=== PATIENT | female | born 1980 ===

== ENCOUNTER 2016-11-24 13:17 | Emergency (ER) | payer OTHER ==
[2016-11-24 13:35] VITALS: RESP 20
--- NOTE | 2016-11-24 15:21 | ED PDOC ---
HPI: Abdomen Time Seen by Provider: 11/24/16 14:19 Chief Complaint (Nursing): Abdominal Pain History Per: Patient (states that she has had heavy menses for at least one month. She was seen at [facility] and was given a 10 day course of medicaition without relief. She uses 3-4 pads during the day time and uses 2 more pads with clots at night. She c/o mild right sided abd pain, upper and lower. She denies complaints.) History/Exam Limitations: no limitations Onset/Duration Of Symptoms: Days (since 10/17/2016), Waxing/Waning, Gradual Outside of [place] travel?: No Past Medical History Reviewed: Historical Data, Nursing Documentation, Vital Signs Vital Signs: Last Vital Signs Temp 98.4 F 11/24/16 13:30 Pulse 87 11/24/16 13:30 Resp 20 11/24/16 13:30 BP 125/91 H 11/24/16 13:30 Pulse Ox 100 11/24/16 15:25 - Medical History PMH: No Chronic Diseases - Surgical History Surgical History: Cholecystectomy - Family History Family History: States: No Known Family Hx - Living Arrangements Living Arrangements: With Family - Social History Current smoker - smoking cessation education provided: No Alcohol: Occasional Drugs: Denies - Home Medications Home Medications: Ambulatory Orders Medication Instructions Recorded Naproxen [Naprosyn] 500 mg PO BID #28 tab 11/24/16 - Allergies Allergies/Adverse Reactions: Allergies Allergy/AdvReac Type Severity Reaction Status Date / Time No Known Allergies Allergy Verified 11/24/16 13:29 Review of Systems ROS Statement: Except As Marked, All Systems Reviewed And Found Negative Constitutional: Negative for: Fever, Chills Gastrointestinal: Positive for: Abdominal Pain. Negative for: Nausea, Vomiting Genitourinary Female: Positive for: Vaginal Bleeding. Negative for: Pelvic Pain Physical Exam - Reviewed Nursing Documentation Reviewed: Yes Vital Signs Reviewed: Yes - Physical Exam Appears: Positive for: Well, Non-toxic, No Acute Distress Head Exam: Positive for: ATRAUMATIC, NORMAL INSPECTION, NORMOCEPHALIC Skin: Positive for: Normal Color, Warm, DRY Eye Exam: Positive for: EOMI, Normal appearance, PERRL ENT: Positive for: Normal ENT Inspection Neck: Positive for: Normal, Painless ROM Cardiovascular/Chest: Positive for: Regular Rate, Rhythm Respiratory: Positive for: CNT, Normal Breath Sounds Gastrointestinal/Abdominal: Positive for: Bowel Sounds, Soft, Tenderness (mild in the right upper and lower quadrants. No guarding or rebound tenderness.) Pelvic Exam: Positive for: External Exam Normal (CRIBBING SETTER: DEVAN IN ROOM 12) , Speculum Exam Normal (SCANT BLOOD), No Cerv. Motion Tender, Blood. Negative for: Discharge, Lesions, Mass, Tender W/Cervical Motion, Tender Adnexa, Tender Uterus Back: Positive for: Normal Inspection Extremity: Positive for: Normal ROM Neurologic/Psych: Positive for: Alert, Oriented - Laboratory Results Result Diagrams: 11/24/16 15:25 11/24/16 15:25 - ECG O2 Sat by Pulse Oximetry: 100 Disposition - Clinical Impression Clinical Impression: DUB (dysfunctional uterine bleeding) - Patient ED Disposition Is Patient to be Admitted: No Doctor Will See Patient In The: Office Counseled Patient/Family Regarding: Diagnosis, Need For Followup, Rx Given - Disposition [facility]] [facility] [Outside] [facility] [Outside] [facility] [Outside] Disposition: Routine/Home Disposition Time: 18:37 Condition: STABLE Prescriptions: Naproxen [Naprosyn] 500 mg PO BID #28 tab Instructions: Dysfunctional Uterine Bleeding (ED) Print Language: OCCITAN
[2016-11-24 15:40] LABS: BASO % 0.5 % (0.0-2.0); EOS # 0.1 K/uL (0.0-0.7); HEMATOCRIT 38.1 % (34.0-47.0); LYMPH # 2.3 K/uL (1.0-4.3); LYMPH % 25.6 % (20.0-40.0); MEAN CELL VOLUME 85.4 fl (81.0-99.0); MEAN CORPUSCULAR HEMOGLOBIN 28.3 pg (27.0-31.0); MEAN CORPUSCULAR HGB CONC 33.2 g/dL (33.0-37.0); MEAN PLATELET VOLUME 9.1 fl (7.2-11.7); MONO # 0.5 K/uL (0.0-0.8); MONO % 5.3 % (0.0-10.0); NEUT # 6.1 K/uL (1.8-7.0); NEUT % 67.6 % (50.0-75.0); RED CELL DISTRIBUTION WIDTH 13.4 % (11.5-14.5)
[2016-11-24 15:46] LABS: ALB/GLOB RATIO 1.5 (1.0-2.1); ALKALINE PHOSPHATASE 71 U/L (38-126); ALT/SGPT 36 U/L (9-52); AST/SGOT 26 U/L (14-36); BILIRUBIN,TOTAL 0.1 mg/dl (0.2-1.3); BLOOD UREA NITROGEN 9 mg/dl (7-17); CALCIUM 9.5 mg/dL (8.4-10.2); CARBON DIOXIDE 25 mmol/L (22-30); CHLORIDE 107 mmol/L (98-107); GFR AFRICAN-AMERICAN > 60; GLUCOSE,RANDOM 107 mg/dL (65-105); POTASSIUM 3.9 MMOL/L (3.6-5.0); SODIUM 146 mmol/l (132-148); TOTAL PROTEIN 7.4 G/DL (6.3-8.2)
[2016-11-24 15:51] LABS: PARTIAL THROMBOPLASTIN TIME 24.1 SECONDS (23.3-32.5)
--- NOTE | 2016-11-24 16:21 | US ---
HISTORY: vaginal bleeding for one month COMPARISON: None available. TECHNIQUE: Transvaginal pelvic ultrasound FINDINGS: UTERUS: Measures 7.8 x 4.2 x 3.4 cm. Anteverted. 0.9 x 0.9 x 0.9 cm probable posterior uterine fibroid. ENDOMETRIUM: Heterogeneous appearance. The endometrium measures approximately 1.8 cm in diameter. CERVIX: No cervical abnormality identified. RIGHT OVARY: Measures 2.8 x 1.7 x 2.2 cm. 1.3 cm and 1.6 cm cysts. LEFT OVARY: Measures 2.1 x 1.1 x 2.2 cm. Blood flow is demonstrated. FREE FLUID: No significant free fluid noted. OTHER FINDINGS: None. IMPRESSION: Thickened heterogeneous endometrium. Recommend correlation with phase of menstrual cycle. Six week ultrasound follow-up recommended for further evaluation. Two small right ovarian cysts. 0.9 cm probable posterior uterine fibroid.
[2016-11-24 17:00] LABS: RBC URINE 85 /hpf (0-3); URINE BACTERIA RARE (<OCC); URINE BILIRUBIN NEGATIVE (NEGATIVE); URINE BLOOD MODERATE (NEGATIVE); URINE COLOR YELLOW (YELLOW); URINE GLUCOSE (UA) NEG (Normal); URINE KETONE NEGATIVE (NEGATIVE); URINE LEUKOCYTE ESTERASE NEG Leu/uL (Negative); URINE PROTEIN 30 mg/dL (NEGATIVE); URINE UROBILINOGEN 0.2-1.0 mg/dL (0.2-1.0); WBC URINE 3 /hpf (0-5)
[2016-11-24 19:15] VITALS: BP 128/78; PULSE 78; TEMP 97.6; O2SAT 98
== END 2016-11-24 19:15 | disposition home or self-care (01) ==
LOC: H.ER 13:17
DX: N83.201 Unspecified ovarian cyst, right side (principal); D25.9 Leiomyoma of uterus, unspecified; N93.9 Abnormal uterine and vaginal bleeding, unspecified

== ENCOUNTER 2018-06-04 12:48 | Emergency (ER) | payer MEDICAID ==
[2018-06-04 12:58] VITALS: RESP 16; TEMP 98.6
[2018-06-04] MEDS ORDERED: Sodium Chloride 0.9% 1,000 ML IV STA (13:52)
--- NOTE | 2018-06-04 14:09 | ED PDOC ---
HPI: Headache Time Seen by Provider: 06/04/18 13:51 Chief Complaint (Nursing): Headache Chief Complaint (Provider): Headache History Per: Patient History/Exam Limitations: no limitations Onset/Duration Of Symptoms: Days (x1 day) Current Symptoms Are (Timing): Still Present Quality: Burning (in abdomen) Additional Complaint(s): Silke Travis is a 37 year old female who is 11 weeks and presents to the emergency department complaining of having a headache with burning pain in abdomen since last night. Patient denies having diarrhea, fever, cough or cold. She further states that she feels like her "belly hurts" when she urinates. OBGYN: Ulices Florez at [facility] Past Medical History Reviewed: Historical Data, Nursing Documentation, Vital Signs Vital Signs: Last Vital Signs Temp 98.6 F 06/04/18 12:55 Pulse 85 06/04/18 12:55 Resp 16 06/04/18 12:55 BP 117/75 06/04/18 12:55 Pulse Ox 99 06/04/18 12:55 - Medical History PMH: No Chronic Diseases - Surgical History Surgical History: Cholecystectomy - Family History Family History: States: Unknown Family Hx - Home Medications Home Medications: Ambulatory Orders Medication Instructions Recorded Naproxen [Naprosyn] 500 mg PO BID #28 tab 11/24/16 Aluminum Hydroxide/Magnesium H 30 ml PO Q12 PRN #200 ml 06/04/18 [Maalox 30 ml] - Allergies Allergies/Adverse Reactions: Allergies Allergy/AdvReac Type Severity Reaction Status Date / Time No Known Allergies Allergy Verified 06/04/18 12:55 Review of Systems ROS Statement: Except As Marked, All Systems Reviewed And Found Negative Constitutional: Negative for: Fever ENT: Negative for: Nose Discharge, Nose Congestion, Throat Pain Respiratory: Negative for: Cough Gastrointestinal: Positive for: Vomiting, Abdominal Pain (Burning belly pain). Negative for: Diarrhea Genitourinary Female: Negative for: Vaginal Discharge, Vaginal Bleeding Neurological: Positive for: Headache Physical Exam - Reviewed Nursing Documentation Reviewed: Yes Vital Signs Reviewed: Yes - Physical Exam Appears: Positive for: Well Head Exam: Positive for: ATRAUMATIC, NORMOCEPHALIC Skin: Positive for: Normal Color, Warm, Dry Eye Exam: Positive for: Normal appearance, EOMI, PERRL ENT: Positive for: Normal ENT Inspection Neck: Positive for: Normal Cardiovascular/Chest: Positive for: Regular Rate, Rhythm. Negative for: Bradycardia, Tachycardia Respiratory: Positive for: Normal Breath Sounds. Negative for: Respiratory Distress Gastrointestinal/Abdominal: Positive for: Normal Exam, Soft. Negative for: Tenderness Back: Positive for: Normal Inspection. Negative for: L CVA Tenderness, R CVA Tenderness Extremity: Positive for: Normal ROM Neurologic/Psych: Positive for: Alert, Oriented (x3). Negative for: Motor/Sensory Deficits - Laboratory Results Result Diagrams: 06/04/18 14:20 06/04/18 14:20 - ECG O2 Sat by Pulse Oximetry: 99 (RA) Pulse Ox Interpretation: Normal - Progress ED Course And Treament: Date of service: 06/04/2018 PROCEDURE: First trimester ultrasound HISTORY: Burning abdominal pain. COMPARISON: 11/24/2016 pelvic ultrasound TECHNIQUE: Transvaginal only. Real -time technique with 2D, duplex and color Doppler NS 1 LITER WIDE OPEN REGLAN 10 MG IV X 1 DOSE US PELVIC FINDINGS: LMP: 03/14/2018 Prior examinations from the current : None TECHNIQUE: Real-time 2D imaging, duplex and color Doppler. FINDINGS: Cardiac activity: Present Rate: 6 2 BPM Measurements: [place] rump length: 4.41 cm Gestational age based on CRL 11 weeks 1 day Gestational age 11 weeks 2 days based on gestational sac measurement 5.33 cm Gestational age derived from LMP: 11 weeks 5 days JOSSIE based on LMP: 12/19/2018 JOSSIE based on biometry: 12/22/2018 Gestational concordance documented Yolk sac identified Cervix: No Cervical abnormalities: Negative examination for cervical dilatation or effacement. Closed cervix measuring 4.37 cm Subchorionic hemorrhage: None UTERUS: 8.2 x 8.6 x 11.7 cm. ADNEXA: Right: 2.6 x 3 x 3.6 cm. Simple cyst 2 x 1.7 x 2.1 cm normal Doppler arterial waveform documented. Left: Not visualized. Fluid in the cul-de-sac: None IMPRESSION: Eleven weeks 2 days live intrauterine gestation. Gestational concordance documented. US Medical Decision Making Medical Decision Making: Initial Time: 13:51 Initial Plan: --BETA-HCG quantitative --CMP --Lipase --ED urine (POC) --ED Urinie Dipstick (POC) --CBC with differential --Reglan 10 mg IVP once --Sodium Chloride 0.9% 1000 ml IV --OB Transvaginal [US] Scribe Attestation: Documented by Vitaliy Holland, acting as a scribe for Eveline Aguilera PA-C Provider Scribe Attestation: All medical record entries made by the Scribe were at my direction and personally dictated by me. I have reviewed the chart and agree that the record accurately reflects my personal performance of the history, physical exam, medical decision making, and the department course for this patient. I have also personally directed, reviewed, and agree with the discharge instructions and disposition. Disposition - Clinical Impression Clinical Impression: Headache - Patient ED Disposition Is Patient to be Admitted: No - Disposition Disposition: Routine/Home Disposition Time: 17:45 Condition: FAIR Additional Instructions: PUEDE COMPRAR TUMS PARA AYUDAR Prescriptions: Aluminum Hydroxide/Magnesium H [Maalox 30 ml] 30 ml PO Q12 PRN #200 ml PRN Reason: Gi Distress Instructions: Headache, Adult (DC), Gastritis
[2018-06-04 14:29] LABS: BASO % 0.3 % (0.0-2.0); EOS % 0.5 % (0.0-4.0); HEMOGLOBIN 12.3 g/dL (12.0-16.0); LYMPH # 1.4 K/uL (1.0-4.3); LYMPH % 17.6 % (20.0-40.0); MEAN CELL VOLUME 83.4 fl (81.0-99.0); MEAN CORPUSCULAR HEMOGLOBIN 28.5 pg (27.0-31.0); MEAN CORPUSCULAR HGB CONC 34.2 g/dL (33.0-37.0); MEAN PLATELET VOLUME 8.3 fl (7.2-11.7); MONO # 0.4 K/uL (0.0-0.8); MONO % 4.6 % (0.0-10.0); NEUT # 6.2 K/uL (1.8-7.0); RBC 4.34 Mil/uL (3.80-5.20); RED CELL DISTRIBUTION WIDTH 15.8 % (11.5-14.5)
[2018-06-04 14:38] LABS: ALB/GLOB RATIO 1.2 (1.0-2.1); ALBUMIN 3.9 g/dL (3.5-5.0); ALT/SGPT 18 U/L (9-52); AST/SGOT 18 U/L (14-36); BLOOD UREA NITROGEN 7 mg/dl (7-17); CALCIUM 9.2 mg/dL (8.4-10.2); GFR NON-AFRICAN AMERICAN > 60; LIPASE 132 U/L (23-300)
--- NOTE | 2018-06-04 16:50 | US ---
Date of service: 06/04/2018 PROCEDURE: First trimester ultrasound HISTORY: Burning abdominal pain. COMPARISON: 11/24/2016 pelvic ultrasound TECHNIQUE: Transvaginal only. Real -time technique with 2D, duplex and color Doppler FINDINGS: LMP: 03/14/2018 Prior examinations from the current : None TECHNIQUE: Real-time 2D imaging, duplex and color Doppler. FINDINGS: Cardiac activity: Present Rate: 6 2 BPM Measurements: [place] rump length: 4.41 cm Gestational age based on CRL 11 weeks 1 day Gestational age 11 weeks 2 days based on gestational sac measurement 5.33 cm Gestational age derived from LMP: 11 weeks 5 days JOSSIE based on LMP: 12/19/2018 JOSSIE based on biometry: 12/22/2018 Gestational concordance documented Yolk sac identified Cervix: No Cervical abnormalities: Negative examination for cervical dilatation or effacement. Closed cervix measuring 4.37 cm Subchorionic hemorrhage: None UTERUS: 8.2 x 8.6 x 11.7 cm. ADNEXA: Right: 2.6 x 3 x 3.6 cm. Simple cyst 2 x 1.7 x 2.1 cm normal Doppler arterial waveform documented. Left: Not visualized. Fluid in the cul-de-sac: None IMPRESSION: Eleven weeks 2 days live intrauterine gestation. Gestational concordance documented.
[2018-06-04 18:40] VITALS: BP 120/70; PULSE 78; O2SAT 100
== END 2018-06-04 18:38 | disposition home or self-care (01) ==
LOC: H.ER 12:48
DX: O26.891 Other specified pregnancy related conditions, first trimester (principal); R51 Headache; Z3A.11 11 weeks gestation of pregnancy
CPT/HCPCS: 76817; 80053; 81025; 83690; 84702; 85025; 96374; 99285; J2765; J7030

== ENCOUNTER 2018-12-14 14:24 | Inpatient (IN) | payer MEDICAID ==
[2018-12-14 14:38] VITALS: BMI 29.2
[2018-12-14] MEDS ORDERED: Lactated Ringer's 1,000 ML IV ONE (14:38)
[2018-12-14] MEDS ORDERED: Lactated Ringer's 2,000 ML IV ONE (14:44)
[2018-12-14] MEDS ORDERED: Oxytocin 30 UNIT in NS 500 ml 30 UNITS/500 ML BAG IV ONE ×3 (14:44→17:15)
[2018-12-14] MEDS ORDERED: Lidocaine 1% Inj (20ml) ONE (14:52)
[2018-12-14 14:59] LABS: BASO # 0.1 K/uL (0.0-0.2); BASO % 0.4 % (0.0-2.0); EOS % 0.1 % (0.0-4.0); HEMOGLOBIN 10.7 g/dL (12.0-16.0); LYMPH # 1.7 K/uL (1.0-4.3); LYMPH % 10.1 % (20.0-40.0); MEAN CELL VOLUME 75.7 fl (81.0-99.0); MEAN CORPUSCULAR HEMOGLOBIN 23.8 pg (27.0-31.0); MEAN CORPUSCULAR HGB CONC 31.4 g/dL (33.0-37.0); MEAN PLATELET VOLUME 9.3 fl (7.2-11.7); MONO # 0.7 K/uL (0.0-0.8); NEUT # 14.7 K/uL (1.8-7.0); NEUT % 85.4 % (50.0-75.0); RBC 4.49 Mil/uL (3.80-5.20); RED CELL DISTRIBUTION WIDTH 16.2 % (11.5-14.5); WHITE BLOOD COUNT 17.2 K/uL (4.8-10.8)
[2018-12-14] MEDS ORDERED: OXYTOCIN/0.9 % NS 20 UNIT/1,000 ML BAG IV ONE (15:00)
[2018-12-14] MEDS ORDERED: Benzocaine/Menthol SPRAY TOP PRN (18:21)
[2018-12-14] MEDS ORDERED: Oxycodone/Acetaminophen 5/325 mg Tab PO PRN ×2 (18:21→21:28)
--- NOTE | 2018-12-14 18:33 | OBADHP ---
Datetime: 12/14/2018 16:25 Pelvic Type - PN: Adequate Extremities - PN: Normal Abdomen - PN: Normal Back - PN: Normal Breast - PN: Not Done Lungs - PN: Normal Heart - PN: Normal Thyroid - PN: Normal Neurologic - PN: Normal HEENT - PN: Normal General - PN: Normal FHR - Baseline A Provider: 130 Comments, ACOG Physical Exam: heart s1 s2 heard no extra heart sound lung clear lung abdomen: BS+ nontender nondistended Pelvic 10, 90,0 Vital Signs Provider: Reviewed Vital Signs Provider Details: blood pressure elevated IP Chief Complaint: Uterine contractions NICHD Variability Prov Fetus A: Marked >25bpm NICHD Accel Fetus A IP Provider: 15X15 FHR Category Provider Fetus A: Category I Dilatation, Provider: 9 Effacement, Provider: 100 Station, Provider: -1 Genitourinary Exam: Normal DTRs - PN: Not Done EGA AdmitDate IP: 39.2 IP Admit Plan: Admit to unit; Initiate labor protocol Datetime: 12/14/2018 14:46 Admit Comment, IP Provider: 39.2yo f 40 wk with Hx GDM, + GBS in current preg present to JONATHAN D ue to active contraction, Pt report contraction started at 7am in morning, Otherwise patient have no othercomplains. Pt report last US was on 34wk with no concerning sign. she denies any water gush, dis charge, or vag bleed. ROS neg except mentioned PCP: Paulo Young Allergy none MED: PNV PMH: GDM ( controlled with diet) PSH: none OBGYN: 2 NVD, GDM in current preg, GBS+ current preg. PFH: denies any disease SOcial denies smoke, drink or drug 15:00 Assessment and plan 39.2 yo f 40 wk with Hx GDM, + GBS in current preg present to JONATHAN Due to active contraction. Will Be admitted to L_D for active labor Will admit to unit for L_D Cervix 6,90,0 YSabri PGY1 Case discussed with Dr oswald OB Hospitalist on-call. With PGY1 I saw and examined this patinet IUP at term/GBS+/GDMA1 (did no t check accuechk today - controlled bny diet as per pt). Admit/labs incl glucose/ IVF/ pain manageme nt discusssed Presentation-Admit: Vertex Membranes, Provider: Intact Gestation - Est Wks by US: 39.2 Pool Provider: Negative IP Hx Assessment: The History has been Reviewed and is Current NICHD Decel Fetus A IP Provider: None IP Adm Impression: Term, intrauterine ; Active labor; Intact Membranes
--- NOTE | 2018-12-14 18:35 | OBPN ---
Datetime: 12/14/2018 16:25 FHR - Baseline A Provider: 130 IP Progress Note Comment: OB Hospitalist on-call. Notified that she had SROM 9cm. anticiapte Vital Signs Provider: Reviewed Vital Signs Provider Details: blood pressure elevated NICHD Accel Fetus A IP Provider: 15X15 FHR Category Provider Fetus A: Category I NICHD Variability Prov Fetus A: Marked >25bpm Dilatation, Provider: 9 Effacement, Provider: 100 Station, Provider: -1 Datetime: 12/14/2018 14:46 Pool Provider: Negative Membranes, Provider: Intact Gestation - Est Wks by US: 39.2 Presentation-Admit: Vertex NICHD Decel Fetus A IP Provider: None
[2018-12-14] MEDS ORDERED: Oxytocin 10 Units/ml Inj IV ONE (18:47)
[2018-12-15 08:00] LABS: BASO % 0.1 % (0.0-2.0); EOS % 0.1 % (0.0-4.0); HEMOGLOBIN 8.4 g/dL (12.0-16.0); LYMPH # 2.1 K/uL (1.0-4.3); LYMPH % 10.7 % (20.0-40.0); MEAN CELL VOLUME 75.9 fl (81.0-99.0); MEAN CORPUSCULAR HGB CONC 31.7 g/dL (33.0-37.0); MEAN PLATELET VOLUME 9.3 fl (7.2-11.7); MONO % 5.1 % (0.0-10.0); NEUT # 16.7 K/uL (1.8-7.0); RBC 3.52 Mil/uL (3.80-5.20); WHITE BLOOD COUNT 19.9 K/uL (4.8-10.8)
--- NOTE | 2018-12-15 10:21 | OBDS ---
DELIVERY PERSONNEL Delivery Doctor: [place] Espinosa DO Fence Laborer: Grace Madrigal RN Resident: Dr Lu MATERNAL INFORMATION Delivery Anesthesia: Local Medications in Delivery: pitocin Estimated Blood Loss (ml): 100 Placenta Cultured: Yes Provider Comments: Earlier I was called because she was pushing and ? hemoatoma noted by PGY1. Actu ally it was anterior cervix (9cm swollen). Many attempts was made to have pt hold off on pushing. A fter 2hr at 9cm, Pitocin was started at 1miu/h. She was instructed to breath through CTX pain and ev entually cervix was reduced and she was able to deliver. Oce head was delivered, a loose nuchal cord noted. This cord was reduced but she was unable to deliver the infant with first push. With next CTX, Vlad and suprapubic pressure applied but infant not delivered. Peds called. With next CTX, MLE perforemd and posterior shoulder (right arm) was delivered. 2,9. Cord Ph sent. Placenta delivered intact spontaneously. Peds noted good ROM of both arms. EBL 100cc. LABOR SUMMARY EDC: 12/19/2018 00:00 No. Babies in Womb: 1 Attempted: No Labor Anesthesia: None LABOR INFORMATION Reason for Induction: Not Applicable Onset of Labor: 12/14/2018 09:00 Complete Dilatation: 12/14/2018 17:46 Oxytocin: Augmentation Group B Beta Strep: Positive Steroids Given: None Reason Steroids Not Administered: Not Applicable MEMBRANES Membranes Rupture Method: Spontaneous Membranes Rupture Method: Spontaneous Rupture of Membranes: 12/14/2018 15:20 Length of Rupture (hrs): 2.55 Amniotic Fluid Color: Clear Amniotic Fluid Amount: Small Amniotic Fluid Odor: Normal STAGES OF LABOR Stage 1 hrs: 8 Stage 1 min: 46 Stage 2 hrs: 0 Stage 2 min: 7 Stage 3 hrs: 0 Stage 3 min: 12 Total Time in Labor hrs: 9 Total Time in Labor min: 5 VAGINAL DELIVERY Episiotomy: Median Laceration Extension: N/A Laceration Type: None Laceration Repair: Yes Laceration Repair Note: 1% Lidocaine infiltrated (5cc). MLE repaired with 2.0 Vicryl Rapide suture. Initial Vag Sponge Count: 5 Final Vag Sponge Count: 5 Initial Vag Sharps Count: 2 Final Vag Sharps Count: 2 Sponge Count Correct: Yes Sharps Count Correct: Yes Count Comment: One syringe two suture needles 10 lap pads BABY A INFORMATION Delivery Date/Time: 12/14/2018 17:53 Method of Delivery: Vaginal : N/A Forceps: N/A Vacuum Extraction: N/A Shoulder Dystocia : Yes ASSISTED DELIVERY BABY A Station Vacuum/Forcep Apply: SHOULDER DYSTOCIA BABY A Delivery of Head: 12/14/2018 17:49 Infant Delivery Date/Time: 12/14/2018 17:53 Time Head to Delivery : 4.0 1st Intervention to Resolve: McRobert's Maneuver 2nd Intervention to Resolve: Suprapubic Pressure 3rd Intervention to Resolve: Episiotomy 4th Intervention to Resolve: Posterior Arm Release PRESENTATION/POSITION BABY A Presentation: Cephalic PLACENTA INFORMATION BABY A Placenta Delivery Time : 12/14/2018 18:05 Placenta Method of Delivery: Spontaneous Placenta Status: Delivered SCORES BABY A Heart Rate 1 min: >100 bpm Resp Effort 1 min: Absent Reflex Irritability 1 min: No Response Muscle Tone 1 min: Flaccid Color 1 min: Blue/Pale Resuscitation Effort 1 min: Tactile Stimulation; Oxygen; PPV/NCPAP SCORE 1 MIN: 2 Heart Rate 5 min: >100 bpm Resp Effort 5 min: Good Cry Reflex Irritability 5 min: Cough or Sneeze or Pulls Away Muscle Tone 5 min: Active Motion Color 5 min: Body Hough, Extremities Blue Resuscitation Effort 5 min: Tactile Stimulation SCORE 5 MIN: 9 INFANT INFORMATION BABY A Gestational Age at Delivery: 39.2 Gestational Status: Term Infant Outcome : Liveborn Condition : Fair Sex: Male CORD INFORMATION BABY A No. Cord Vessels: 3 Nuchal Cord : Around Neck x1, Loose Cord Blood Taken: Yes Infant Suction: Mouth
--- NOTE | 2018-12-15 10:23 | OBPPN ---
Datetime: 12/15/2018 08:45 PP Pain Prov: Within normal limits PP Nausea Prov: Denies PP Flatus Prov: Yes PP BM Prov: No PP Heart Prov: Normal PP Lungs Prov: Normal PP Abdomen/Uterus Prov: Normal PP Lochia Prov: Normal PP Extremities Prov: Normal PP C/S Incision Prov: Not Applicable PP Progress Prov: Not Applicable PP Impression Prov: Normal progression PP Plan Prov: Continue present management PP Progress Note Prov: Voyce: [id number] Pt is a 38 yo s/p on 12/14/18, today PPD1, Patient seen and examined at bedside. Pain con trolled with medication. Patient ambulating with no difficulty. Tolerating regular diet, Lochia is l esperanza menses in volume. Patient is passing flatus, - BM. Patient denies fever chills, CP, SOB, N/V/D/C or dysuria.Pt is bottle feeding ROS: all other systems reviewed and negative unless noted in HPI O: VS BP 98/66 GEN: NAD HEENT: EOMI RESP: CTA b/l, no wheezes, rales or rhonchi CV: RRR, S1 S2 normal, no murmurs ABD: Soft, uterus firm at umbilical level. Appropriate tenderness to palpation, + BS EXT: No edema A/P 38 yo s/p on 12/14/18, today PPD1. Pt doing well. Plan -breast feeding and ambulation encouraged -PNV 1 tab QD -Motrin 600mg po q6h for mild pain -Started Ferrous Sulfate, Pt Hg 8.4 -Pt to follow up at [facility] in 4-6 weeks for post and emailed josef to belkisu le at [facility] in 2-3 days. Case reviewed and discussed with attending OB Hospitalist on-call Pt seen on rounds. Agree with note. BOO Thornton PGY1 IP PP Procedures: None Vital Signs Provider PP: Reviewed Vital Signs Provider Details PP: BP 98/66
--- NOTE | 2018-12-16 11:46 | OBPPN ---
Datetime: 12/16/2018 08:10 PP Pain Prov: Within normal limits PP Nausea Prov: Denies PP Flatus Prov: Yes PP BM Prov: Yes PP Heart Prov: Normal PP Lungs Prov: Normal PP Comments Phys Exam Prov: see progress note PP Impression Prov: Normal progression PP Plan Prov: Continue present management; Discharge PP Progress Note Prov: S: 38 YO s/p on 12/14/18, today PPD2, [facility]. Pain control with medication. Patient ambulating with no difficulty. Tolerating regular diet without N/V. Lochia is less than menses in volume. Patient is passing flatus, and had BM. Patient den ies VALIENTE, blurry vision, CP, palpitations, SOB, chills dysuria or other complaint at this time. Breastf eeding appropriately. O: VS WNL GEN: NAD HEENT: NAD RESP: CTA b/l CV: RRR, S1 S2 normal, no murmurs ABD: Soft, uterus firm at umbilical level. Mild tender to touch, BS +. EXT: LE no edema, Frnech's neg A/P 38 YO s/p on 12/14/18, today PPD2. Patient is afebrile, hemodynamically stable and with n ormal PP progression. Plan - Ambulation encouraged -Regular diet - encouraged -PNV 1 tab QD -Ferrous sulfate 1 Tab PO QD -Pain management -Continue present management -DC planning today Case discussed with attending MD Briana PGY1 Addendum by Dr. Shepherd: I have evaluated the patient independently and I agree with the above Vital Signs Provider PP: Reviewed; Within Normal Limits
[2018-12-16 23:00] VITALS: BP 126/72; PULSE 81; RESP 20; TEMP 98.2
== END 2018-12-16 18:32 | disposition home or self-care (01) | DRG 560 ==
LOC: H.EROB2 14:24 → H.L&D 14:38 → H.OB/GYN 19:57
PROVIDERS: ADMIT Obstetrics & Gynecology; ATTEND Obstetrics & Gynecology
PROC: 0W8NXZZ Division of Female Perineum, External Approach (ICD-10-PCS; principal; 2018-12-14)
PROC: 10E0XZZ Delivery of Products of Conception, External Approach (ICD-10-PCS; 2018-12-14)
PROC: 0KQM0ZZ Repair Perineum Muscle, Open Approach (ICD-10-PCS; 2018-12-14)
PROC: 4A1HXCZ Monitoring of Products of Conception, Cardiac Rate, External Approach (ICD-10-PCS; 2018-12-14)
DX: O99.824 Streptococcus B carrier state complicating childbirth (principal); O24.420 Gestational diabetes mellitus in childbirth, diet controlled; O69.81X0 Labor and delivery complicated by cord around neck, without compression, not applicable or unspecified; Z37.0 Single live birth; Z3A.39 39 weeks gestation of pregnancy; O66.0 Obstructed labor due to shoulder dystocia